=== PATIENT | male | born 1970 | race Caucasian/White ===

== ENCOUNTER 2022-08-28 09:26 | Outpatient (CLI) | payer BC, SELFPAY ==
[2022-08-28 12:49] LABS: Anion Gap 8.1 mmol/L (3-11); BUN 15 mg/dL (7-18); CO2 27.9 mmol/L (21.0-32.0); CREATININE 1.1 mg/dL (0.70-1.30); Calcium 9.7 mg/dL (8.5-10.1); Calculated LDL 197 mg/dL (<100); Chloride 104 mmol/L (98-107); Cholesterol 268 mg/dL (<200); Estimated GFR 80.27 (mL/min/1.73m2); Glucose 92 mg/dL (74-106); HDL Cholesterol 48 mg/dL (40-60); Potassium 4.5 mmol/L (3.5-5.1); Sodium 140 mmol/L (136-145); Triglyceride 116 mg/dL (<150)
[2022-08-28 23:31] LABS: PSA, Screening 0.4 ng/mL (<=3.5)
== END 2022-08-28 09:27 | disposition home or self-care (01) ==
LOC: LOS 09:28
PROVIDERS: PCP Family Medicine; Visit Provider Family Medicine
DX: E78.5 Hyperlipidemia, unspecified (principal); E87.1 Hypo-osmolality and hyponatremia; Z12.5 Encounter for screening for malignant neoplasm of prostate; I10 Essential (primary) hypertension
CPT/HCPCS: 36415; 80048; 80061; 84153

== ENCOUNTER → 2023-03-17 02:34 | Outpatient (CLI) | payer BC, SELFPAY ==
--- NOTE | 2023-03-17 07:00 | DI.RAD_ITS ---
Exam(s) XR LUMBAR SPINE COMPLETE EXAM: XR LUMBAR SPINE COMPLETE CLINICAL HISTORY: low back pain with left leg numbness/weakness,m54.9. TECHNIQUE: 2D digital imaging was performed of the lumbar spine. Five images were obtained. AP, la teral, right oblique, left oblique and L5-S1 spot views were obtained. COMPARISON: CR LUMBAR SPINE COMPLETE from 04/19/2015 FINDINGS: BONES: No fracture or destructive lesion. There are endplate osteophytes at multiple levels of the celine mbar spine. Degenerative changes of the facets are seen at L4-5 and L5-S1. DISKS: There is disc space narrowing and a vacuum disc at L5-S1. ALIGNMENT: Lumbar spinal alignment is within normal limits. No spondylolysis or spondylolisthesis. SOFT TISSUE: Atherosclerosis. IMPRESSION: Moderate degenerative changes seen in the lumbar spine. DATA REPOSITORY: RADIATION DOSE DELIVERED:
== END ==
PROVIDERS: PCP Family Medicine; Visit Provider Family Medicine
DX: M51.36 Other intervertebral disc degeneration, lumbar region (principal)
CPT/HCPCS: 72110

== ENCOUNTER → 2023-10-07 14:05 | Outpatient (CLI) | payer BC, SELFPAY ==
--- NOTE | 2023-10-07 13:45 | DI.RAD_ITS ---
Exam(s) XR LUMBAR SPINE COMPLETE EXAM: XR LUMBAR SPINE COMPLETE CLINICAL HISTORY: M54.9 Dorsalgia, unspecified, low back pain with left leg pain. TECHNIQUE: 2D digital imaging was performed. COMPARISON: CR LUMBAR SPINE COMPLETE from 04/19/2015 CR XR LUMBAR SPINE COMPLETE from 03/17/2023 FINDINGS: Five views. No evidence of fracture or listhesis nor pars defects. There is again noted bands disc space narrowi ng L5-S1 level. Other disc spaces continue to exhibit normal height. Facet joints unremarkable. Sa croiliac joints appear unremarkable. Bone density normal. No osseous lesions. Calcification in the abdominal aorta and iliac arteries noted. IMPRESSION: Advanced disc space narrowing L5-S1 level again noted, unchanged from 2015. No new osseous findings. DATA REPOSITORY: RADIATION DOSE DELIVERED:
== END ==
PROVIDERS: PCP Family Medicine; Visit Provider Family Medicine
DX: M54.59 Other low back pain (principal); M79.605 Pain in left leg; M51.37 Other intervertebral disc degeneration, lumbosacral region
CPT/HCPCS: 72110

== ENCOUNTER 2023-10-09 01:05 | Outpatient (CLI) | payer BC, SELFPAY ==
[2023-10-09 12:35] LABS: AST 36 U/L (15-37); Anion Gap 11.9 mmol/L (3-11); BUN 14 mg/dL (7-18); CO2 27.1 mmol/L (21.0-32.0); CREATININE 1.2 mg/dL (0.70-1.30); Calcium 10.2 mg/dL (8.5-10.1); Calculated LDL 156 mg/dL (<100); Chloride 101 mmol/L (98-107); Cholesterol 235 mg/dL (<200); Estimated GFR 71.86 (mL/min/1.73m2); Glucose 119 mg/dL (74-106); HDL Cholesterol 51 mg/dL (40-60); LDL CHOLESTEROL 149 mg/dL (<100); Potassium 3.5 mmol/L (3.5-5.1); Sodium 140 mmol/L (136-145); Triglyceride 143 mg/dL (<150)
== END 2023-10-09 01:06 | disposition home or self-care (01) ==
LOC: LOS 01:05
PROVIDERS: PCP Family Medicine; Visit Provider Family Medicine
DX: E78.5 Hyperlipidemia, unspecified (principal); I10 Essential (primary) hypertension; E87.1 Hypo-osmolality and hyponatremia; R53.83 Other fatigue
CPT/HCPCS: 36415; 80048; 80061; 83721; 84450

== ENCOUNTER → 2023-10-22 02:53 | Outpatient (CLI) | payer BC, SELFPAY ==
--- NOTE | 2023-10-22 07:45 | DI.MRI_ITS ---
Exam(s) MR LUMBAR SPINE WO EXAM: MR LUMBAR SPINE WO CLINICAL HISTORY: intermittent incontinence with worsening low back pain,m54.50. TECHNIQUE: Multiplanar multisequence MRI of the Lumbar spine was performed. COMPARISON: CR LUMBAR SPINE COMPLETE from 04/19/2015 CR XR LUMBAR SPINE COMPLETE from 03/17/2023 CR XR LUMBAR SPINE COMPLETE from 10/07/2023 FINDINGS: The examination is limited due to patient motion artifact. Bones: The last intervertebral disc space is designated the L5/S1 level for the numbering purpose of this examination. The vertebral body heights are well maintained. Alignment is satisfactory. There are degenerative endplate signal changes at L5-S1. Cord: The conus tip ends at the T12 level. It is of normal size and signal intensity. T12-L1: No disc herniations or bulges are present. No central spinal canal or neural foraminal stenos is. L1-2: No disc herniations or bulges are present. No central spinal canal or neural foraminal stenosis . L2-3: No disc herniations or bulges are present. No central spinal canal or neural foraminal stenosis . L3-4: No disc herniations or bulges are present. There is mild narrowing of the central spinal canal. No significant neural foraminal stenosis. L4-5: There is a mild diffuse disc bulge and mild degenerative changes of the facets. There is mild narrowing of the central spinal canal. There is mild narrowing of the neural foramen bilaterally. L5-S1: There is a disc bulge at L5-S1. It is centrally located. There is mild narrowing of the cent ral spinal canal. There is mild bilateral neural foraminal narrowing. Soft tissues: The visualized SI joints and sacrum are well maintained. The paraspinal soft tissues ar e unremarkable. IMPRESSION: 1. There is a disc bulge at L5-S1. There is mild narrowing of the central spinal canal and mild bila teral neural foraminal narrowing. 2. Multilevel degenerative changes in the lumbar spine. The findings do result in mild narrowing of the central spinal canal at L3-L4 and mild bilateral neural foraminal narrowing at L4-L5. DATA REPOSITORY:
== END ==
PROVIDERS: PCP Family Medicine; Visit Provider Family Medicine
DX: M51.17 Intervertebral disc disorders with radiculopathy, lumbosacral region (principal)
CPT/HCPCS: 72148

== ENCOUNTER 2024-01-07 11:49 | Outpatient (CLI) | payer BC, SELFPAY ==
--- NOTE | 2024-01-07 11:45 | RT.EKG_ITS ---
APPROVED REPORT Exam: Resting ECG Reason for Exam: preoperative clearance Patient Location: O HR:87 bpm ECG Measurements Heart Rate 87 AXIS AR 153 P 43 QRSd 83 QRS 46 QT 344 T 4 QTc 414 Conclusion Sinus rhythm...normal P axis, V-rate 50- 99 Normal Electrocardiogram
== END 2024-01-07 11:50 | disposition home or self-care (01) ==
LOC: DI.CM 11:49
PROVIDERS: PCP Family Medicine; Visit Provider Family Medicine
DX: Z01.818 Encounter for other preprocedural examination (principal); M51.26 Other intervertebral disc displacement, lumbar region
CPT/HCPCS: 93010

== ENCOUNTER 2024-01-08 02:02 | Outpatient (CLI) | payer BC, SELFPAY ==
[2024-01-08 12:16] LABS: Anion Gap 9.2 mmol/L (3-11); BUN 12 mg/dL (7-18); CO2 28.8 mmol/L (21.0-32.0); CREATININE 1.1 mg/dL (0.70-1.30); Calcium 9.5 mg/dL (8.5-10.1); Chloride 101 mmol/L (98-107); Estimated GFR 79.77 (mL/min/1.73m2); Glucose 89 mg/dL (74-106); Sodium 139 mmol/L (136-145)
[2024-01-08 12:26] LABS: HCT 49.3 % (40.0-50.0); HGB 17.1 g/dL (13.5-17.5); MCH 30.7 pg (27.0-33.0); MCHC 34.7 % (32.0-36.0); MCV 89 fL (80-95); MPV 9.9 fL (8.0-11.0); Platelet Count 309 10^3/uL (130-400); RBC 5.57 10^6/uL (4.36-5.78); RDW 13.3 % (11.8-14.1); RDW-SD 43.4 fL; WBC 9.21 10^3/uL (4.4-10.8)
== END 2024-01-08 02:03 | disposition home or self-care (01) ==
LOC: LBO 02:03
PROVIDERS: PCP Family Medicine; Visit Provider Family Medicine
DX: R53.83 Other fatigue (principal); E87.1 Hypo-osmolality and hyponatremia
CPT/HCPCS: 36415; 80048; 85027

== ENCOUNTER 2024-10-13 10:19 | Outpatient (CLI) | payer BC, SELFPAY ==
[2024-10-13 13:05] LABS: Calculated LDL 78 mg/dL (<100); Cholesterol 143 mg/dL (<200); HDL Cholesterol 51 mg/dL (>or=40); Hemoglobin A1C 5.5 % (<5.7); TSH (W/Ref FT4) 0.99 uIU/mL (0.36-3.74); Triglyceride 74 mg/dL (<150)
== END 2024-10-13 10:20 | disposition home or self-care (01) ==
LOC: LOS 10:19
PROVIDERS: PCP Family Medicine; Referring Provider Family Medicine; Visit Provider Family Medicine
DX: E78.5 Hyperlipidemia, unspecified (principal); R73.9 Hyperglycemia, unspecified; E03.9 Hypothyroidism, unspecified
CPT/HCPCS: 36415; 80061; 83036; 84443

== ENCOUNTER 2025-03-27 17:29 | Emergency (ER) | payer BC, SELFPAY ==
--- NOTE | 2025-03-27 17:30 | RT.EKG_ITS ---
APPROVED REPORT Exam: Resting ECG Reason for Exam: Chest Pain Patient Location: E HR:112 bpm ECG Measurements Heart Rate 112 AXIS IN 135 P 48 QRSd 80 QRS 63 QT 307 T 25 QTc 419 Conclusion Sinus tachycardia...rate> 99
[2025-03-27 17:32] VITALS: BP 146/88; PULSE 113; RESP 12; TEMP 36.7; O2SAT 96
--- NOTE | 2025-03-27 17:57 | W.ED.GENAD ---
Discharge Plan Disposition Patient Disposition: Home Condition: Stable Discharge Details Clinical Impression: Sinusitis Primary Care Provider: Dwayne Vázquez ED Provider: Sae Hatfield [place] Meds and New Rx's Prescriptions: New amoxicillin-pot clavulanate 875-125 mg tablet 1 tab PO BID Qty: 14 0RF Continued fluticasone propionate 50 mcg/actuation spray,suspension See Rx Instructions .ROUTE .COMPLEX Qty: 16 5RF Dose Instruction: INSTILL 2 SPRAYS INTO EACH NOSTRIL ONCE DAILY Rx Instructions: INSTILL 2 SPRAYS INTO EACH NOSTRIL ONCE DAILY aspirin 81 mg tablet,chewable 81 mg PO DAILY acetaminophen 650 mg tablet extended release 1,300 mg PO Q4H PRN atorvastatin 80 mg tablet 80 mg PO QPM Qty: 90 4RF gabapentin 600 mg tablet 600 - 900 mg PO BID Qty: 135 1RF Rx Instructions: dose increase 01/07/24 start 300mg in AM, can increase to 600 mg as needed 07/14/24 Discharge Instructions Additional Instructions: Take the antibiotic as prescribed. If you not improving within a week follow-up with your primary care provider. If you feel significantly more ill or have new symptoms such as persistent vomiting return to the emergency department for reevaluation. HPI General Mode of arrival: ambulatory. Date/Time Provider Initiated Documentation: 03/27/25 17:33. Limitations to Documentation: no limitations. Information obtained by: patient. History of Present Illness 54 year old M presents to the emergency department with the chief complaint of sinus pressure, cough, sore throat, described as moderate, Patient started experiencing this day(s) (3) and it has been constant. No relieving factors improve symptom(s), No exacerbating factors reported . Patient notes denies fever/chills and nausea/vomiting. Patient did receive the following treatments prior to arrival, none Related Data Home Medications ?Medication ?Instructions ?Recorded ?Confirmed fluticasone propionate 50 See Rx Instructions .Route 03/29/24 03/27/25 mcg/actuation nasal .COMPLEX #16 mL spray,suspension aspirin 81 mg chewable tablet 81 mg PO DAILY 05/05/24 03/27/25 acetaminophen 650 mg 1,300 mg PO Q4H PRN 05/09/24 03/27/25 tablet,extended release atorvastatin 80 mg tablet 80 mg PO QPM #90 tabs 05/30/24 03/27/25 gabapentin 600 mg tablet 600 - 900 mg (1 - 1.5 x 600 mg) PO 11/14/24 03/27/25 BID #135 tabs amoxicillin 875 mg-potassium 1 tab PO BID #14 tabs 03/27/25 clavulanate 125 mg tablet Previous Rx's ?Medication ?Instructions ?Recorded fluticasone propionate 50 See Rx Instructions .Route 03/29/24 mcg/actuation nasal .COMPLEX #16 mL spray,suspension atorvastatin 80 mg tablet 80 mg PO QPM #90 tabs 05/30/24 gabapentin 600 mg tablet 600 - 900 mg (1 - 1.5 x 600 mg) PO 11/14/24 BID #135 tabs amoxicillin 875 mg-potassium 1 tab PO BID #14 tabs 03/27/25 clavulanate 125 mg tablet Allergies Allergy/AdvReac Type Severity Reaction Status Date / Time No Known Allergies Allergy Verified 03/27/25 17:36 General Stated Complaint: Chest Pain DIONICIO: 3 Review of Systems All systems reviewed & are unremarkable except as noted in HPI and below Constitutional Constitutional: Denies chills, Denies fever(s) and Denies weakness ENT Ears, Nose, Mouth, and Throat: Reports sinus pain, Reports sinus pressure and Reports sore throat Cardiovascular Cardiovascular: Reports chest pain and Denies dyspnea Respiratory Respiratory: Reports cough and Denies dyspnea Gastrointestinal Gastrointestinal: Denies abdominal pain, Denies nausea and Denies vomiting Neurologic Neurologic: Denies weakness Exam Const General: no acute distress Orientation: alert [facility] Head: normal to inspection Ears: external ears normal General nose exam: external nose normal Face and sinus: sinus tenderness Mouth: moist mucous membranes Throat: uvula midline Eyes General: appearance normal, both eyes and all related structures Neck Neck: normal visual inspection Resp Effort & Inspection: normal respiratory effort and able to speak in complete sentences Cardio Rate: regular rate Skin General skin exam: no rashes or lesions noted Neuro General: patient alert and patient oriented x3 Extrem General: normal to inspection Psych Mental Status: mental status grossly normal Course Vital Signs Vital signs: Vital Signs Temperature 36.7 C 03/27/25 17:32 Pulse 113 H 03/27/25 17:32 Respiratory Rate 12 03/27/25 17:32 Blood Pressure 146/88 H 03/27/25 17:32 Pulse Oximetry 96 03/27/25 17:32 Temperature 36.7 C 03/27/25 17:32 Temperature Source Oral 03/27/25 17:32 Pulse 113 H 03/27/25 17:32 Respiratory Rate 12 03/27/25 17:32 Blood Pressure 146/88 H 03/27/25 17:32 Blood Pressure Position Sitting 03/27/25 17:32 Pulse Oximetry 96 03/27/25 17:32 Oxygen Delivery Method Room Air 03/27/25 17:32 Oxygen Flow Rate 0 03/27/25 17:32 Medical Decision Making 54-year-old male with a history of prior CVA, migraines, hypertension comes in with 3 days of sore throat, sinus pressure and cough, no fevers or chills. He had some chest discomfort earlier today but none now. He is well-appearing in no distress. He has a erythematous posterior pharynx with a midline uvula, no submandibular swelling or pain over the hyoid. Has had also with dry cough. He symptoms seem viral in etiology, given his frontal head and sinus pressure will obtain Noncon CT head and sinuses to evaluate for possible evidence of sinusitis and also check a CBC CMP and given his chest pain check troponins. He has no evidence of DVT on exam and no pleuritic chest pain the symptoms seem viral in etiology so I doubt PE. No tearing back pain to suggest dissection. Patient is very troponin negative and his symptoms were all over 3 hours ago and he does not want to stay to have the CT or further lab work. He is pain-free. I feel this is reasonable given I doubt he has a sinus or intracranial abscess. I am going to start him on Augmentin and he will follow-up with his PCP if not improving and return precautions given. Differential Diagnosis Differential Diagnosis: Sinusitis, COVID, pharyngitis Medical Records Medical records reviewed: Yes I reviewed the patient's medical records. Lab Data Lab results reviewed: Yes I reviewed the patient's lab results. ECG Data Attestation: I personally reviewed and interpreted this ECG (s) as follows: Prior ECG tracings: available for review Interpretation: sinus tachycardia, rate of 112, no stemi Quality:SDOH Health Related Social Needs: Health related social needs lonely/isolated PFSH All Active Problems (Updated 03/27/25 @ 19:15 by Sae Hatfield MD) Sinusitis (Acute) Migraine headache with aura (Acute) Cerebral infarction due to unspecified occlusion or stenosis of left posterior cerebral artery (Acute) Thrombotic stroke (Acute ~03/2024) HNP (herniated nucleus pulposus), lumbar (Acute) Low back pain with sciatica (Acute) Fatigue (Acute) Sleep disorder (Acute) Bilateral high frequency sensorineural hearing loss (Acute) Conductive hearing loss in left ear (Acute) Eustachian tube dysfunction (Acute) Essential hypertension (Acute) Mood disorder (Acute) Hyperlipidemia with target LDL less than 130 (Acute) Medical History Aspiration pneumonia (~03/2024) Chest pain (10/31/11) Otalgia, left ear Perforated eardrum 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 Sister No problems noted. Sister No problems noted. Daughter No problems noted. Son No problems noted. Son No problems noted. Maternal Grandmother No problems noted. Maternal Grandfather No problems noted. Paternal Grandmother No problems noted. Paternal Grandfather No problems noted. Social History Smoking/Tobacco Use Status: Former Tobacco Use tobacco type: cigarettes Quit Date: 06/29/23 Tobacco: How many years used: 25 Second Hand Exposure: No Smoking risk assessment performed?: Yes Alcohol Intake: former Year quit: 2023 Drug use: Never Substance use type: does not use Counseling given: No Adopted: No Caregiver/Support person: No Household members: spouse Housing: house Number of Children: 3 number of grandchildren: 3 Education Level: college Details: Some Do you need help understanding health information?: Often current occupation: [employer] Sexually active: Yes Do you think of yourself as: straight/heterosexual Current gender identity: male What is your relationship status?: How often do you talk on the phone with friends or family?: twice per week How often do you get together with friends or relatives?: once per week How often do you attend faith or gnosticist services?: 1-3 times per year Do you belong to any clubs or organized social groups?: no Panel score (0-1 are the most socially isolated patients): 2 What type of physical activity do you participate in: other Details: PT Frequency: 1-2 times per week Ramona/Pentecostal: Hoahaoism Special ramona needs: No Agree to transfusion: Yes Seatbelt use: always Helmet use: Yes Helmet use: always Drive intox or ride w/intox bicycle taxi driver: No Working smoke detector in home: Yes Carbon monox detector in home: Yes Firearms in home: Yes Firearms unloaded and locked: Yes Do you feel safe at home: Yes Do you feel safe in your relationship?: Yes
[2025-03-27 18:05] VITALS: RESP 18
[2025-03-27 18:14] LABS: Abs Immature Grans 0.05 10^3/uL (0.0-0.06); HCT 48.0 % (40.0-50.0); HGB 16.4 g/dL (13.5-17.5); Immature Grans % 0.4 %; MCH 29.1 pg (27.0-33.0); MCHC 34.2 % (32.0-36.0); MCV 85 fL (80-95); MPV 9.8 fL (8.0-11.0); Platelet Count 293 10^3/uL (130-400); RBC 5.63 10^6/uL (4.36-5.78); RDW 13.6 % (11.8-14.1); RDW-SD 42.3 fL; WBC 12.69 10^3/uL (4.4-10.8)
[2025-03-27] MEDS: Dexamethasone 10 MG/ML VIAL IVP (18:30)
[2025-03-27 18:34] LABS: Magnesium 2.3 mg/dL (1.8-2.4); Troponin I 6 ng/L (<or=76)
[2025-03-27 18:35] LABS: ALT 44 U/L (16-63); AST 29 U/L (15-37); Albumin 4.1 g/dL (3.4-5.0); Alkaline Phosphatase 100 U/L (46-116); Anion Gap 11.0 mmol/L (3-11); BUN 11 mg/dL (7-18); Bilirubin, Total 0.7 mg/dL (0.2-1.0); CO2 25.0 mmol/L (21.0-32.0); Calcium 9.5 mg/dL (8.5-10.1); Chloride 107 mmol/L (98-107); Estimated GFR 88.88 (mL/min/1.73m2); Glucose 107 mg/dL (74-106); Potassium 3.9 mmol/L (3.5-5.1); Sodium 143 mmol/L (136-145); Total Protein 8.2 g/dL (6.4-8.2)
[2025-03-27 19:24] VITALS: BP 148/76; PULSE 88; RESP 20; O2SAT 97
[2025-03-27] MEDS: Amoxicillin 875/Clav. 125 TAB PO (19:24)
== END 2025-03-27 19:25 | disposition home or self-care (01) ==
PROVIDERS: Emergency Provider Emergency Medicine; PCP Family Medicine
DX: J01.90 Acute sinusitis, unspecified (principal); R09.81 Nasal congestion
CPT/HCPCS: 99284; 99283; 87880; 96374; 80053; 93005; 83735; 84484; 84703; 85025; 87081; 93010; J1100